=== PATIENT | male | born 1985 | race Caucasian/White ===

== ENCOUNTER 2017-10-27 16:33 | Emergency (ER) | payer BC, OTHER ==
[2017-10-27 17:33] VITALS: BP 123/77
--- NOTE | 2017-10-27 17:57 | UC ---
Skin Complaint HPI - HPI Summary HPI Summary: 32 y/o female presents to the urgent care c/o a rash in his Rt wrist for the past 10 days. Pt reports he went [place]orkeling [place] and he scraped his wrist w/ the corals. then on his way back he noticed the rash which has worsen w/ itchiness and redness. He has tried Hydrocortisone topical cream s/o any improvement. Pt denies fever, swelling, SOB, chest pain, throat tightening, abdominal pain, N/V/D. - History of Current Complaint Chief Complaint: UCSkin Stated Complaint: SKIN CONCERN Hx Obtained From: Patient Onset/Duration: Sudden Onset, Lasting Days - 10 days, Still Present, Worse Since - 3 days Skin Exposure Onset/Duration: Days Ago - 10 days Timing: Constant Onset Severity: Mild Current Severity: Moderate Pain Intensity: 0 Pain Scale Used: 0-10 Numeric Location: Discrete - Rt wrist Character: Pruritus, Redness Aggravating Factor(s): Touch Alleviating Factor(s): OTC Meds Associated Signs & Symptoms: Positive: Rash. Negative: Fever, Chills, Wheezing , Chest Pain, Hoarseness, Throat Tightening, Drainage, Bruising, Tenderness Related History: Possible Reaction to: Environmental Exposure - Allergy/Home Medications Allergies/Adverse Reactions: Allergies Allergy/AdvReac Type Severity Reaction Status Date / Time No Known Allergies Allergy Verified 10/27/17 17:17 Review of Systems Constitutional: Negative Skin: Rash - RT writst red rash w/ itchiness Eyes: Negative ENT: Negative Respiratory: Negative Cardiovascular: Negative Gastrointestinal: Negative Genitourinary: Negative Motor: Negative Neurovascular: Negative Musculoskeletal: Negative Neurological: Negative Psychological: Negative Is Patient Immunocompromised?: No All Other Systems Reviewed And Are Negative: Yes PMH/Surg Hx/FS Hx/Imm Hx Previously Healthy: Yes - Pt denies PMHX - Surgical History Surgical History: Yes Surgery Procedure, Year, and Place: EXCISION MASS LEFT SIDE NECK AN INFANT - Family History Known Family History: Positive: None - Pt denies FMHX - Social History Occupation: Employed Full-time Lives: With Family Alcohol Use: Occasionally Substance Use Type: None Smoking Status (MU): Never Smoked Tobacco Physical Exam - Summary Physical Exam Summary: Vital Signs Reviewed: Yes General: well appearing, well nourished male in no acute apparent pain distress , sitting comfortably on examining table Eye Exam: Normal Eyes: Positive: Conjunctiva Clear - PERRLA< EOMI, fundi grossly normal ENT: Positive: Normal ENT inspection, Hearing grossly normal, Pharynx normal, TMs normal Neck: Positive: Supple, Nontender, No Lymphadenopathy Respiratory: Positive: Chest non-tender, Lungs clear, Normal breath sounds, No respiratory distress Cardiovascular: Positive: RRR, No Murmur, Pulses Normal, Brisk Capillary Refill Abdomen Description: Positive: Nontender, No Organomegaly, Soft. Negative: CVA Tenderness (R), CVA Tenderness (L) Bowel Sounds: Positive: Present Musculoskeletal: Positive: Strength Intact, ROM Intact, No Edema Neurological: Positive: Alert, Muscle Tone Normal Psychological Exam: Normal Skin: Positive:ventral aspect of RT wrist with an erythematous patch w/ some celar vesicles, w/ mild signs of excoriation, no drainage observed, non tender to palpation.FROM of Rt wrist. Triage Information Reviewed: Yes Vital Signs: Initial Vital Signs Temp 98.0 F 10/27/17 17:13 Pulse 59 10/27/17 17:13 Resp 18 10/27/17 17:13 BP 123/77 10/27/17 17:13 Pulse Ox 98 10/27/17 17:13 Course/Dx - Course Course Of Treatment: 32 y/o female presents to the urgent care c/o a rash in his Rt wrist for the past 10 days. Pt reports he went snorkeling in [facility] and he scraped his wrist w/ the corals. then on his way back he noticed the rash which has worsen w/ itchiness and redness. He has tried Hydrocortisone topical cream s/o any improvement. Pt denies fever, swelling, SOB, chest pain, throat tightening, abdominal pain, N/V/D. Hx obtained. pt w/ probably contact dermatitis on Rt wirst on examination. Pt RX Prednisone PO taper dose, and Triamcinolone topical lotion to alleviate symptoms. D/C instructions explained. Pt understood and agreed w/ plan of care and left the clinic ambulating and hemodynamically stable. - Differential Diagnoses - Skin Complaint Differential Diagnoses: Abscess, Cellulitis, Contact Dermatitis, Local Allergic Reaction, MRSA, Tinea, Urticaria - Diagnoses Provider Diagnoses: 1- Rt wrist contact dermatitis Discharge - Sign-Out/Discharge Documenting (check all that apply): Patient Departure - D/C home - Discharge Plan Condition: Stable Disposition: HOME Prescriptions: predniSONE TAB* [Deltasone 20 MG TAB*] 20 mg PO DAILY #11 tab Triamcinolone 0.1% CREAM(NF) [Kenalog Cream 0.1%(NF)] 1 applic TOPICAL BID #1 tube Patient Education Materials: Contact Dermatitis (ED) Referrals: [facility] [Outside] - 1 Week Jyoti Marino [Medical Doctor] - 1 Week Additional Instructions: 1-Please Start taking Prednisone PO taper dose starting tomorrow. first loading dose given today at the clinic. 2- Continue taking Benadryl PO to alleviate itchiness. Apply topical cream as directed. Avoid exposure to the sun. 3-If symptoms do not improve or worsen please f/u with your PCP or [facility] in 2-3 days for further evaluation and treatment. 4- If symptoms worsen and you develop SOB or difficulty breathing please go immediately to the Er for further management. - Billing Disposition and Condition Condition: STABLE Disposition: Home
== END 2017-10-27 18:45 | disposition home or self-care (01) ==
LOC: UCCORT 16:33
DX: L25.8 Unspecified contact dermatitis due to other agents (principal)
CPT/HCPCS: 99202; G0463

== ENCOUNTER 2019-06-20 17:04 | Emergency (ER) | payer BC ==
[2019-06-20 17:22] VITALS: BP 116/76
--- NOTE | 2019-06-20 17:52 | UC ---
Skin Complaint HPI - HPI Summary HPI Summary: Patient is a 34yo male presenting with rash on b/l arms, abdomen, and neck that he states began appearing ~1 hour ago while sitting at his desk at work. Patient states rash is very itchy. Denies lip, tongue, and throat swelling. Denies sob and difficulty breathing. Denies any known allergies. Denies new soaps, detergents, foods, medications, exposures, and cleaning chemicals. Denies anything like this in the past. - History of Current Complaint Chief Complaint: UCRash Stated Complaint: RASH Hx Obtained From: Patient Pain Intensity: 0 - Allergy/Home Medications Allergies/Adverse Reactions: Allergies Allergy/AdvReac Type Severity Reaction Status Date / Time No Known Allergies Allergy Verified 06/20/19 17:22 Home Medications: Home Medications predniSONE 10 mg TAB [Deltasone 10 MG TAB*] 30 mg PO DAILY #12 tab 06/20/19 [Rx] PMH/Surg Hx/FS Hx/Imm Hx Previously Healthy: Yes - Surgical History Surgical History: Yes Surgery Procedure, Year, and Place: EXCISION MASS LEFT SIDE NECK AN INFANT - Family History Known Family History: Positive: None - Pt denies FMHX - Social History Alcohol Use: Occasionally Substance Use Type: None Smoking Status (MU): Never Smoked Tobacco - Immunization History Most Recent Tetanus Shot: UTD Vaccination Up to Date: Yes Review of Systems All Other Systems Reviewed And Are Negative: Yes Constitutional: Positive: Negative Skin: Positive: Rash - itchy rash b/l arms, abdomen, neck ENT: Positive: Negative Respiratory: Positive: Negative. Negative: Shortness Of Breath Cardiovascular: Positive: Negative Gastrointestinal: Positive: Negative. Negative: Vomiting, Nausea Musculoskeletal: Positive: Negative Neurological/Mental Status: Positive: Negative Physical Exam - Summary Physical Exam Summary: Vital Signs Reviewed: Yes A+Ox3, no distress, well-appearing Eyes: Conjunctiva Clear ENT: Hearing grossly normal, uvula midline, no exudate, no erythema, no pharyngeal edema, no lip or tongue edema Neck: Positive: Supple Respiratory: Positive: No respiratory distress, No accessory muscle use + CTA throughout no w/r, no stridor Cardiovascular: RRR nl s1, s2 no m/r Musculoskeletal Exam: GARDNER x 4 without difficulty Neurological: Positive: Alert Psychological: Positive: age appropriate behavior Skin: Positive: urticarial rash noted on b/l ventral UEs, abdomen, and anterior neck Vital Signs: Initial Vital Signs Temp 98.2 F 06/20/19 17:18 Pulse 88 06/20/19 17:18 Resp 16 06/20/19 17:18 BP 116/76 06/20/19 17:18 Pulse Ox 98 06/20/19 17:18 Course/Dx - Course Course Of Treatment: Discussed urticaria with patient. No signs of anaphylaxis. I provided with prednisone prescription and instructed to add pepcid. Instructed to follow up if rash persists and to go to ED with any lip, tongue, throat swelling, n/v, or difficulty breathing. Patient voiced understanding and agreed with treatment plan. - Diagnoses Provider Diagnosis: Urticaria Discharge ED - Sign-Out/Discharge Documenting (check all that apply): Patient Departure All imaging exams completed and their final reports reviewed: No Studies - Discharge Plan Condition: Stable Disposition: HOME Prescriptions: predniSONE 10 mg TAB [Deltasone 10 MG TAB*] 30 mg PO DAILY #12 tab Patient Education Materials: Urticaria (ED) Referrals: No Primary Care Phys,NOPCP [Primary Care Provider] - Additional Instructions: As discussed, it is difficult to know what caused your rash, but we can treat your symptoms. Take prednisone as prescribed. You may take over the counter Pepcid to help relieve itching. Follow up with your primary care provider if rash does not improve within 5-7 days. Go to the emergency room if you experience any lip swelling, tongue swelling, or difficulty breathing. - Billing Disposition and Condition Condition: STABLE Disposition: Home
== END 2019-06-20 17:46 | disposition home or self-care (01) ==
LOC: UCCORT 17:04
DX: L50.9 Urticaria, unspecified (principal)
CPT/HCPCS: 99212; G0463